=== PATIENT | female | born 1980 | race Caucasian/White ===

== ENCOUNTER 2016-12-20 00:40 | Emergency (ER) | payer MEDICAID ==
[~2016-12-20] VITALS: Ht 185.4 cm; Wt 129.3 kg
[2016-12-20 01:56] LABS: Basophils # (auto) 0 uL; Basophils % (auto) 0.5 % (0.0-2.0); CONDITION Y; Eosinophils # (auto) 0.3 uL; Eosinophils % (auto) 2.6 % (0.0-7.0); Hematocrit 40.1 % (36.0-46.0); Hemoglobin 13.6 g/dL (12.2-16.2); Lymphocytes # (auto) 1.7 uL; Lymphocytes % (auto) 16.5 % (10.0-50.0); Mean Corpuscular Hemoglobin 31.3 pg (28.0-32.0); Mean Corpuscular Hgb Conc. 33.9 g/dL (32.0-36.0); Mean Corpuscular Volume 92.3 fL (80.0-100.0); Mean Platelet Volume 7.1 fL (7.4-10.4); Monocytes # (auto) 0.7 uL; Monocytes % (auto) 6.6 % (0.0-12.0); Neutrophils # (auto) 7.6 uL; Neutrophils % (auto) 73.8 % (37.0-80.0); Platelet Count (auto) 452 10^3/uL (140-450); Red Cell Distribution Width 13.6 % (11.6-16.0); White Blood Cell 10.3 10^3/uL (4.4-10.8)
[2016-12-20 02:27] LABS: Albumin 3.3 g/dL (3.4-5.0); BUN/Creatinine Ratio 12.7; Calcium 8.9 mg/dL (8.5-10.1); Potassium 3.9 mmol/L (3.5-5.1)
[2016-12-20 02:30] LABS: Bilirubin, Total 0.4 mg/dL (0.2-1.0); Total Protein 7.6 g/dL (6.4-8.2)
[2016-12-20 03:48] LABS: Urine Bilirubin Negative (Negative); Urine Color Yellow (Yellow); Urine Glucose Normal (Normal); Urine Mucus FEW (None Seen); Urine Nitrite Negative (Negative); Urine RBC 3 /hpf (0 - 4); Urine Squamous Epithelial Cell FEW /hpf (<5); Urine Urobilinogen Normal (Negative)
[2016-12-20 04:09] LABS: Urine Blood 1+ /uL (Negative); Urine Ketone 1+ (Negative)
[2016-12-20 05:30] VITALS: BP 126/72
== END 2016-12-20 05:30 ==
LOC: ER 01:07
DX: O99.331 Smoking (tobacco) complicating pregnancy, first trimester (principal); O26.891 Other specified pregnancy related conditions, first trimester; F15.90 Other stimulant use, unspecified, uncomplicated; Z3A.10 10 weeks gestation of pregnancy
CPT/HCPCS: 36415; 76801; 80053; 80307; 81001; 84702; 85025

== ENCOUNTER 2020-07-04 19:34 | Emergency (ER) | payer MEDICAID, OTHER ==
[~2020-07-04] VITALS: Ht 188 cm; Wt 154.2 kg
[2020-07-04] MEDS ORDERED: PANTOPRAZOLE 40 MG/10 ML VIAL INJ IV ONE (19:45)
[2020-07-04 20:10] LABS: Basophils # (auto) 0.1 10 ^3/uL (0-0.2); Basophils % (auto) 0.8 % (0.0-2.0); Eosinophils # (auto) 0.2 10 ^3/uL (0-0.8); Eosinophils % (auto) 2.2 % (0.0-7.0); Hematocrit 42.4 % (36.0-46.0); Hemoglobin 14.6 g/dL (12.2-16.2); Lymphocytes # (auto) 2.5 10 ^3/uL (0.4-5.4); Lymphocytes % (auto) 35.9 % (10.0-50.0); Mean Corpuscular Hemoglobin 32.3 pg (28.0-32.0); Mean Corpuscular Hgb Conc. 34.5 g/dL (32.0-36.0); Mean Corpuscular Volume 93.6 fL (80.0-100.0); Monocytes # (auto) 0.6 10 ^3/uL (0-1.3); Monocytes % (auto) 9.2 % (0.0-12.0); Neutrophils # (auto) 3.6 10 ^3/uL (1.6-8.6); Neutrophils % (auto) 51.9 % (37.0-80.0); Nucleated Red Blood Cells % 0.2 %; Platelet Count (auto) 322 10^3/uL (140-450); Red Blood Cells 4.53 10^6/uL (4.0-5.20); Red Cell Distribution Width 13.7 % (11.8-14.3)
[2020-07-04 20:26] LABS: Albumin 2.9 g/dL (3.4-5.0); Anion Gap 6 (5-15); Blood Urea Nitrogen 15 mg/dL (7-18); Calcium 8.3 mg/dL (8.5-10.1); Carbon Dioxide 27 mmol/L (21-32); Chloride 107 mmol/L (98-107); Glucose 97 mg/dL (74-106); Potassium 3.9 mmol/L (3.5-5.1); Sodium 140 mmol/L (136-145)
[2020-07-04 20:31] LABS: Alanine Aminotransferase 76 U/L (13-56); Alkaline Phosphatase 153 U/L (45-117); Aspartate Aminotransferase 64 U/L (15-37); Bilirubin, Total 0.4 mg/dL (0.2-1.0); GFR African American 79 mL/min; GFR Non-African American 66 mL/min; Total Protein 6.3 g/dL (6.4-8.2)
[2020-07-04 22:15] VITALS: BP 140/97
== END 2020-07-04 22:25 | disposition home or self-care (01) ==
LOC: ER 19:34
DX: R07.89 Other chest pain (principal); F15.90 Other stimulant use, unspecified, uncomplicated; K21.9 Gastro-esophageal reflux disease without esophagitis
CPT/HCPCS: 36415; 71046; 80053; 83880; 84484; 85025

== ENCOUNTER 2022-03-13 19:21 | Inpatient (IN) | payer MEDICAID ==
[~2022-03-13] VITALS: Ht 188 cm; Wt 175.0 kg
[2022-03-13 21:40] LABS: Basophils # (auto) 0.1 10 ^3/uL (0-0.2); Basophils % (auto) 0.9 % (0.0-2.0); Eosinophils # (auto) 0.1 10 ^3/uL (0-0.8); Eosinophils % (auto) 1.9 % (0.0-7.0); Hemoglobin 14.6 g/dL (12.2-16.2); Lymphocytes # (auto) 1.1 10 ^3/uL (0.4-5.4); Lymphocytes % (auto) 17.6 % (10.0-50.0); Mean Corpuscular Hemoglobin 31.8 pg (28.0-32.0); Mean Corpuscular Hgb Conc. 33.2 g/dL (32.0-36.0); Mean Corpuscular Volume 95.9 fL (80.0-100.0); Monocytes # (auto) 0.4 10 ^3/uL (0-1.3); Monocytes % (auto) 6.7 % (0.0-12.0); Neutrophils # (auto) 4.7 10 ^3/uL (1.6-8.6); Neutrophils % (auto) 72.9 % (37.0-80.0); Red Blood Cells 4.59 10^6/uL (4.0-5.20); Red Cell Distribution Width 17.8 % (11.8-14.3); White Blood Cell 6.5 10^3/uL (4.4-10.8)
[2022-03-13 22:01] LABS: Albumin 2.9 g/dL (3.4-5.0); Calcium 9.3 mg/dL (8.5-10.1); Magnesium 2.7 mg/dL (1.6-2.6); Potassium 3.6 mmol/L (3.5-5.1)
[2022-03-13 22:07] LABS: Lactic Acid w/Reflex 2.4 mmol/L (0.4-2.0)
[2022-03-13 22:10] LABS: BUN/Creatinine Ratio 12.6; Bilirubin, Total 3.1 mg/dL (0.2-1.0); CRP High Sensitivity 12.4 mg/dL (< 0.3); Total Protein 6.9 g/dL (6.4-8.2)
[2022-03-13] MEDS ORDERED: FUROSEMIDE 100 MG/10ML VIAL IV ONE (22:30)
[2022-03-13] MEDS ORDERED: CLINDAMYCIN 900MG IV 50 ML IV ONE (23:15)
[2022-03-14] MEDS ORDERED: GABAPENTIN 100 MG CAP PO ONE (02:00)
[2022-03-14] MEDS ORDERED: NITROGLYCERIN 0.4 MG SL TAB SL PRN (02:15)
[2022-03-14] MEDS ORDERED: TEMAZEPAM 15 MG CAP PO PRN (02:15)
[2022-03-14] MEDS ORDERED: HYDROcodone-ACET 5/325MG TAB PO PRN (02:15)
[2022-03-14] MEDS ORDERED: MORPHINE SULFATE INJ 2 MG/ml SYRG IV PRN (02:15)
[2022-03-14] MEDS ORDERED: ACETAMINOPHEN 325 MG TAB PO PRN (02:15)
[2022-03-14] MEDS ORDERED: ONDANSETRON HCL 4 MG/2 ML VIAL IV PRN (02:15)
[2022-03-14 02:58] LABS: Cholesterol 102 mg/dL (< 200)
[2022-03-14 03:00] LABS: HDL Cholesterol 22 mg/dL (40-59); LDL Cholesterol 72 mg/dL (< 100); Triglycerides 116 mg/dL (< 150)
[2022-03-14 04:08] LABS: Alcohol, Urine < 3.0 mg/dL (0-10); Amphetamine Screen, Urine POSITIVE (NEGATIVE); Barbiturate Scree,Urine NEGATIVE (NEGATIVE); Benzodiazephine Screen, Urine NEGATIVE (NEGATIVE); Cannabinoid Screen, Urine NEGATIVE (NEGATIVE); Cocaine Screen, Urine NEGATIVE (NEGATIVE); Opiate Scree,Urine NEGATIVE (NEGATIVE); Phencyclidine Screen, Urine NEGATIVE (NEGATIVE)
[2022-03-14 04:16] LABS: Urine Bacteria NONE SEEN /hpf (None Seen); Urine Blood Negative /uL (Negative); Urine Hyaline Cast FEW /lpf (0 - 2); Urine Specific Gravity 1.012 (1.001-1.035); Urine WBC 1 /hpf (0 - 5)
[2022-03-14] MEDS ORDERED: CLINDAMYCIN 600MG IV 50 ML IV SCH (06:00)
[2022-03-14] MEDS ORDERED: ENOXAPARIN SOD 100 MG/1 ML SYRINGE SC ONE (06:00)
[2022-03-14] MEDS: GABAPENTIN 100 MG CAP PO SCH ×3 (06:19→21:43)
[2022-03-14] MEDS: FUROSEMIDE 40 MG/4 ML VIAL IV SCH ×2 (06:19→18:05)
[2022-03-14] MEDS: CLINDAMYCIN 600MG IV 50 ML IV SCH ×2 (09:46→18:00)
[2022-03-14] MEDS ORDERED: PANTOPRAZOLE 40 MG TAB PO SCH (10:00)
[2022-03-14] MEDS ORDERED: ASPirin 81 mg TAB PO SCH (10:00)
[2022-03-14] MEDS ORDERED: METOPROLOL TARTRATE 25 MG TAB PO SCH (10:00)
[2022-03-14 18:00] VITALS: BP 116/76
[2022-03-14] MEDS ORDERED: BUME2TAB5 PO (19:02)
[2022-03-14] MEDS ORDERED: SPIR50TA5 PO (19:02)
[2022-03-14] MEDS ORDERED: PRED10TA PO (19:02)
[2022-03-14] MEDS ORDERED: HYDR1TAB97 (19:02)
[2022-03-14] MEDS ORDERED: DIPH-599 PO (19:02)
[2022-03-14] MEDS ORDERED: TORS100T12 PO (19:02)
[2022-03-14] MEDS ORDERED: ASPI1TAB37 PO (19:02)
[2022-03-14] MEDS ORDERED: TRIA0.5C TOP (19:02)
[2022-03-14] MEDS ORDERED: GAB100C PO (19:02)
[2022-03-14] MEDS ORDERED: METO25TA93 PO (19:02)
[2022-03-14] MEDS ORDERED: POTA-167 (19:02)
[2022-03-14] MEDS ORDERED: GABA300C10 PO (19:02)
[2022-03-14 21:30] VITALS: BP 100/64
[2022-03-14] MEDS ORDERED: ATORVASTATIN 20 MG TAB PO SCH (22:00)
[2022-03-14] MEDS ORDERED: CARVEDILOL 3.125 MG TAB PO SCH (22:00)
[2022-03-15] MEDS ORDERED: cefTRIAXone 1GM/50ML D5W 50 ML IV SCH (09:00)
[2022-03-15] MEDS ORDERED: ENOXAPARIN SOD 40 MG/0.4 ML SYRINGE SC SCH (10:00)
== END 2022-03-15 00:10 | disposition home or self-care (01) | DRG 194 ==
LOC: ER 19:21 → TELE 03-14 02:22 → TELE-EAST 03-14 17:40
PROVIDERS: ADMIT Nurse Practitioner; ATTEND Nurse Practitioner Acute Care
DX: I11.0 Hypertensive heart disease with heart failure (principal); I27.20 Pulmonary hypertension, unspecified; L03.115 Cellulitis of right lower limb; N17.9 Acute kidney failure, unspecified; E88.09 Other disorders of plasma-protein metabolism, not elsewhere classified; I42.7 Cardiomyopathy due to drug and external agent; L03.116 Cellulitis of left lower limb; E78.5 Hyperlipidemia, unspecified; F15.10 Other stimulant abuse, uncomplicated; I50.43 Acute on chronic combined systolic (congestive) and diastolic (congestive) heart failure; R09.02 Hypoxemia; E66.01 Morbid (severe) obesity due to excess calories; Z68.42 Body mass index [BMI] 45.0-49.9, adult; Z82.49 Family history of ischemic heart disease and other diseases of the circulatory system; Z83.3 Family history of diabetes mellitus
CPT/HCPCS: 36415; 36600; 71045; 78582; 80053; 80061; 80307; 81001; 82805; 83036; 83605; 83735; 83880; 84443; 84484; 84702; 85025; 85379; 86141; 87040; 87426; 93306; 93970; 96365; 96372; 96375; G0378; J3490

== ENCOUNTER 2022-03-20 23:39 | Inpatient (IN) | payer MEDICAID ==
[~2022-03-20] VITALS: Ht 182.9 cm; Wt 184.7 kg
[~2022-03-20 23:39] MED LIST: ASPI1TAB37 PO; BUME2TAB5 PO; DIPH-599 PO; GAB100C PO; GABA300C10 PO; HYDR1TAB97; METO25TA93 PO; POTA-167; PRED10TA PO; SPIR50TA5 PO; TORS100T12 PO; TRIA0.5C TOP
[2022-03-21 03:20] LABS: Basophils # (auto) 0.1 10 ^3/uL (0-0.2); Basophils % (auto) 1.2 % (0.0-2.0); Eosinophils # (auto) 0.2 10 ^3/uL (0-0.8); Eosinophils % (auto) 2.9 % (0.0-7.0); Hematocrit 39.8 % (36.0-46.0); Hemoglobin 13.2 g/dL (12.2-16.2); Lymphocytes # (auto) 1.3 10 ^3/uL (0.4-5.4); Lymphocytes % (auto) 21.6 % (10.0-50.0); Mean Corpuscular Hgb Conc. 33.3 g/dL (32.0-36.0); Monocytes # (auto) 0.5 10 ^3/uL (0-1.3); Monocytes % (auto) 7.4 % (0.0-12.0); Neutrophils # (auto) 4.1 10 ^3/uL (1.6-8.6); Neutrophils % (auto) 66.9 % (37.0-80.0); Nucleated Red Blood Cells % 0.1 %; Red Blood Cells 4.14 10^6/uL (4.0-5.20); Red Cell Distribution Width 18.2 % (11.8-14.3); White Blood Cell 6.1 10^3/uL (4.4-10.8)
[2022-03-21 03:51] LABS: Albumin 2.4 g/dL (3.4-5.0); Calcium 8.3 mg/dL (8.5-10.1); Magnesium 2.6 mg/dL (1.6-2.6); Potassium 3.3 mmol/L (3.5-5.1)
[2022-03-21 03:54] LABS: Bilirubin, Total 1.3 mg/dL (0.2-1.0); Total Protein 5.8 g/dL (6.4-8.2)
[2022-03-21] MEDS ORDERED: FUROSEMIDE 40 MG/4 ML VIAL IV ONE (05:30)
[2022-03-21] MEDS ORDERED: NITROGLYCERIN 0.4 MG SL TAB SL PRN (05:30)
[2022-03-21] MEDS ORDERED: IOHEXOL 350 MG/ML 100ML IJ ONE (05:31)
[2022-03-21] MEDS: ACETAMINOPHEN 325 MG TAB PO PRN (06:18)
[2022-03-21 08:01] VITALS: BP 101/66
[2022-03-21 09:57] LABS: INR 1.22 (0.9-1.15); Partial Thromboplastin Time 28.5 sec (24.6-33.4)
[2022-03-21] MEDS: ASPirin 81 mg TAB PO SCH (10:09)
[2022-03-21] MEDS: PANTOPRAZOLE 40 MG TAB PO SCH (10:09)
[2022-03-21] MEDS: METOPROLOL SUCCINATE XL 50 MG TAB PO SCH (10:11)
[2022-03-21] MEDS ORDERED: POTASSIUM EFFERVESENT TAB 25 MEQ PO ONE (11:45)
[2022-03-21] MEDS ORDERED: ENOXAPARIN SOD 30 MG/0.3 ML SYRINGE SC ONE (11:45)
[2022-03-21] MEDS: CLINDAMYCIN 900MG IV 50 ML IV SCH ×2 (14:24→22:37)
[2022-03-21] MEDS: MORPHINE SULFATE INJ 2 MG/ml SYRG IV PRN (15:19)
[2022-03-21] MEDS: ALBUTEROL SULF 2.5 MG/0.5ML(0.5%) NEB SOLN NEB PRN ×2 (15:28→19:06)
[2022-03-21] MEDS: FUROSEMIDE 20 MG/2 ML VIAL IV SCH (17:58)
[2022-03-21] MEDS ORDERED: FUROSEMIDE 20 MG/2 ML VIAL IV SCH (18:00)
[2022-03-21] MEDS: ENOXAPARIN SOD 40 MG/0.4 ML SYRINGE SC SCH (22:00)
[2022-03-21] MEDS ORDERED: SACUBITRIL-VALSARTAN 24mg/26mg TAB PO SCH (22:00)
[2022-03-21] MEDS: POTASSIUM CHL 20 Meq TABLET PO SCH (22:29)
[2022-03-21] MEDS: ATORVASTATIN 20 MG TAB PO SCH (22:30)
[2022-03-21] MEDS ORDERED: MULT-1018 PO (23:13)
[2022-03-21] MEDS ORDERED: CHOL20007 PO (23:14)
[2022-03-21] MEDS ORDERED: SACC1CAP3 PO (23:15)
[2022-03-21 23:16] VITALS: BP 103/67
[2022-03-21] MEDS: TEMAZEPAM 15 MG CAP PO PRN (23:53)
[2022-03-22] VITALS (13 sets, daily range): BP systolic 89–118; BP diastolic 43–80
[2022-03-22] MEDS: ALBUTEROL SULF 2.5 MG/0.5ML(0.5%) NEB SOLN NEB SCH ×4 (00:49→18:37)
[2022-03-22] MEDS: FUROSEMIDE 20 MG/2 ML VIAL IV SCH ×3 (02:32→18:13)
[2022-03-22] MEDS: ACETAMINOPHEN 325 MG TAB PO PRN (03:39)
[2022-03-22] MEDS: CLINDAMYCIN 900MG IV 50 ML IV SCH ×3 (05:57→22:20)
[2022-03-22] MEDS: HYDROcodone-ACET 5/325MG TAB PO PRN ×3 (05:57→22:16)
[2022-03-22 06:07] LABS: Basophils # (auto) 0.1 10 ^3/uL (0-0.2); Eosinophils # (auto) 0.1 10 ^3/uL (0-0.8); Eosinophils % (auto) 2.2 % (0.0-7.0); Hematocrit 37.8 % (36.0-46.0); Hemoglobin 12.7 g/dL (12.2-16.2); Lymphocytes # (auto) 1.2 10 ^3/uL (0.4-5.4); Lymphocytes % (auto) 22.5 % (10.0-50.0); Mean Corpuscular Hemoglobin 32.6 pg (28.0-32.0); Mean Corpuscular Hgb Conc. 33.5 g/dL (32.0-36.0); Mean Corpuscular Volume 97.4 fL (80.0-100.0); Monocytes # (auto) 0.3 10 ^3/uL (0-1.3); Monocytes % (auto) 6.1 % (0.0-12.0); Neutrophils # (auto) 3.6 10 ^3/uL (1.6-8.6); Neutrophils % (auto) 68.2 % (37.0-80.0); Nucleated Red Blood Cells % 0.1 %; Red Blood Cells 3.88 10^6/uL (4.0-5.20); Red Cell Distribution Width 18.4 % (11.8-14.3); White Blood Cell 5.3 10^3/uL (4.4-10.8)
[2022-03-22 06:33] LABS: Potassium 3.9 mmol/L (3.5-5.1)
[2022-03-22 06:46] LABS: Albumin 2.4 g/dL (3.4-5.0); BUN/Creatinine Ratio 17.4; Bilirubin, Total 1.3 mg/dL (0.2-1.0); Calcium 8.8 mg/dL (8.5-10.1); Total Protein 5.9 g/dL (6.4-8.2)
[2022-03-22] MEDS ORDERED: EMPAGLIFLOZIN 10 MG TAB PO SCH (07:00)
[2022-03-22] MEDS: POTASSIUM CHL 20 Meq TABLET PO SCH ×2 (10:04→22:18)
[2022-03-22] MEDS: METOPROLOL SUCCINATE XL 50 MG TAB PO SCH (10:04)
[2022-03-22] MEDS: PANTOPRAZOLE 40 MG TAB PO SCH (10:04)
[2022-03-22] MEDS: ASPirin 81 mg TAB PO SCH (10:04)
[2022-03-22] MEDS: ENOXAPARIN SOD 40 MG/0.4 ML SYRINGE SC SCH ×2 (10:05→22:16)
[2022-03-22 12:40] LABS: Free T4 (Free Thyroxine) 1.02 ng/dL (0.89-1.76); T3 Total 0.84 ng/mL (0.60-1.81)
[2022-03-22] MEDS: ATORVASTATIN 20 MG TAB PO SCH (22:17)
[2022-03-23] MEDS: TEMAZEPAM 15 MG CAP PO PRN (00:59)
[2022-03-23] MEDS: ALBUTEROL SULF 2.5 MG/0.5ML(0.5%) NEB SOLN NEB SCH ×4 (01:28→18:27)
[2022-03-23] MEDS: FUROSEMIDE 20 MG/2 ML VIAL IV SCH ×3 (02:55→18:51)
[2022-03-23 05:00] VITALS: BP 109/75
[2022-03-23] MEDS: CLINDAMYCIN 900MG IV 50 ML IV SCH ×3 (05:29→22:37)
[2022-03-23 06:04] LABS: Calcium 8.6 mg/dL (8.5-10.1); Potassium 4.7 mmol/L (3.5-5.1)
[2022-03-23 06:58] LABS: Urine Bacteria NONE SEEN /hpf (None Seen); Urine Blood 1+ /uL (Negative); Urine Specific Gravity 1.019 (1.001-1.035); Urine WBC 14 /hpf (0 - 5)
[2022-03-23 07:20] LABS: Alcohol, Urine < 3.0 mg/dL (0-10); Amphetamine Screen, Urine NEGATIVE (NEGATIVE); Barbiturate Scree,Urine NEGATIVE (NEGATIVE); Benzodiazephine Screen, Urine NEGATIVE (NEGATIVE); Cannabinoid Screen, Urine NEGATIVE (NEGATIVE); Cocaine Screen, Urine NEGATIVE (NEGATIVE); Opiate Scree,Urine POSITIVE (NEGATIVE); Phencyclidine Screen, Urine NEGATIVE (NEGATIVE)
[2022-03-23 08:00] VITALS: BP 103/42
[2022-03-23] MEDS: MORPHINE SULFATE INJ 2 MG/ml SYRG IV PRN ×2 (08:18→18:53)
[2022-03-23 09:14] VITALS: BP 103/42
[2022-03-23] MEDS: LIDOCAINE VISCOUS 2% 15ML UD MT PRN ×4 (09:54→22:36)
[2022-03-23] MEDS: ASPirin 81 mg TAB PO SCH (09:54)
[2022-03-23] MEDS: POTASSIUM CHL 20 Meq TABLET PO SCH (09:55)
[2022-03-23] MEDS: PANTOPRAZOLE 40 MG TAB PO SCH (09:55)
[2022-03-23] MEDS: ENOXAPARIN SOD 40 MG/0.4 ML SYRINGE SC SCH ×2 (09:56→22:37)
[2022-03-23] MEDS: METOPROLOL SUCCINATE XL 50 MG TAB PO SCH (09:57)
[2022-03-23] MEDS ORDERED: ENOXAPARIN SOD 40 MG/0.4 ML SYRINGE SC SCH (10:00)
[2022-03-23 13:00] VITALS: BP 99/70
[2022-03-23 17:41] VITALS: BP 112/70
[2022-03-23] MEDS ORDERED: LACTULOSE 20Gm/30ML SOLN PO PRN (18:00)
[2022-03-23 22:00] VITALS: BP 113/65
[2022-03-23] MEDS: ATORVASTATIN 20 MG TAB PO SCH (22:35)
[2022-03-23] MEDS: SENNA 8.6 MG TAB PO SCH (22:36)
[2022-03-24] MEDS: ALBUTEROL SULF 2.5 MG/0.5ML(0.5%) NEB SOLN NEB SCH ×4 (00:31→18:02)
[2022-03-24] MEDS: FUROSEMIDE 20 MG/2 ML VIAL IV SCH ×2 (02:14→09:29)
[2022-03-24] MEDS: ACETAMINOPHEN 325 MG TAB PO PRN ×2 (02:20→20:41)
[2022-03-24 05:00] VITALS: BP 102/60
[2022-03-24 05:04] LABS: Basophils # (auto) 0.1 10 ^3/uL (0-0.2); Basophils % (auto) 1.3 % (0.0-2.0); Eosinophils # (auto) 0.1 10 ^3/uL (0-0.8); Eosinophils % (auto) 1.9 % (0.0-7.0); Hematocrit 37.4 % (36.0-46.0); Hemoglobin 12.6 g/dL (12.2-16.2); Lymphocytes # (auto) 1.1 10 ^3/uL (0.4-5.4); Lymphocytes % (auto) 21.7 % (10.0-50.0); Mean Corpuscular Hemoglobin 32.6 pg (28.0-32.0); Mean Corpuscular Hgb Conc. 33.8 g/dL (32.0-36.0); Mean Corpuscular Volume 96.5 fL (80.0-100.0); Monocytes # (auto) 0.3 10 ^3/uL (0-1.3); Monocytes % (auto) 6.2 % (0.0-12.0); Neutrophils # (auto) 3.6 10 ^3/uL (1.6-8.6); Neutrophils % (auto) 68.9 % (37.0-80.0); Nucleated Red Blood Cells % 0.2 %; Red Blood Cells 3.87 10^6/uL (4.0-5.20); Red Cell Distribution Width 18.5 % (11.8-14.3); White Blood Cell 5.3 10^3/uL (4.4-10.8)
[2022-03-24 05:20] LABS: BUN/Creatinine Ratio 17.5; Calcium 8.9 mg/dL (8.5-10.1); Potassium 4.8 mmol/L (3.5-5.1)
[2022-03-24] MEDS: CLINDAMYCIN 900MG IV 50 ML IV SCH ×3 (05:32→22:20)
[2022-03-24 08:00] VITALS: BP 99/55
[2022-03-24 09:00] VITALS: BP 99/55
[2022-03-24] MEDS: ENOXAPARIN SOD 40 MG/0.4 ML SYRINGE SC SCH ×2 (09:27→22:20)
[2022-03-24] MEDS: ASPirin 81 mg TAB PO SCH (09:28)
[2022-03-24] MEDS: SENNA 8.6 MG TAB PO SCH ×2 (09:28→22:18)
[2022-03-24] MEDS: PANTOPRAZOLE 40 MG TAB PO SCH (09:28)
[2022-03-24] MEDS: LIDOCAINE VISCOUS 2% 15ML UD MT PRN (09:30)
[2022-03-24] MEDS: METOPROLOL SUCCINATE XL 50 MG TAB PO SCH (09:30)
[2022-03-24] MEDS: HYDROcodone-ACET 5/325MG TAB PO PRN (09:40)
[2022-03-24] MEDS ORDERED: metOLazone 5 MG TAB PO SCH (10:00)
[2022-03-24 13:00] VITALS: BP 110/58
[2022-03-24 16:50] VITALS: BP 109/63
[2022-03-24] MEDS: ONDANSETRON HCL 4 MG/2 ML VIAL IV PRN (16:55)
[2022-03-24] MEDS: MORPHINE SULFATE INJ 2 MG/ml SYRG IV PRN (16:56)
[2022-03-24] MEDS: CARVEDILOL 3.125 MG TAB PO SCH (17:24)
[2022-03-24] MEDS: FUROSEMIDE 20 MG TAB PO SCH (17:25)
[2022-03-24] MEDS: metOLazone 5 MG TAB PO SCH (17:26)
[2022-03-24] MEDS: TEMAZEPAM 15 MG CAP PO PRN (22:18)
[2022-03-24] MEDS: ATORVASTATIN 20 MG TAB PO SCH (22:19)
[2022-03-25] MEDS: ALBUTEROL SULF 2.5 MG/0.5ML(0.5%) NEB SOLN NEB SCH ×4 (00:09→18:51)
[2022-03-25] MEDS: ONDANSETRON HCL 4 MG/2 ML VIAL IV PRN ×2 (01:18→05:23)
[2022-03-25] MEDS: MORPHINE SULFATE INJ 2 MG/ml SYRG IV PRN ×2 (01:23→09:05)
[2022-03-25 05:00] VITALS: BP 120/66
[2022-03-25 05:21] LABS: Basophils # (auto) 0.1 10 ^3/uL (0-0.2); Eosinophils # (auto) 0.2 10 ^3/uL (0-0.8); Eosinophils % (auto) 2.9 % (0.0-7.0); Hematocrit 35.5 % (36.0-46.0); Lymphocytes % (auto) 19.5 % (10.0-50.0); Mean Corpuscular Hemoglobin 32.8 pg (28.0-32.0); Mean Corpuscular Hgb Conc. 33.9 g/dL (32.0-36.0); Mean Corpuscular Volume 96.6 fL (80.0-100.0); Monocytes # (auto) 0.5 10 ^3/uL (0-1.3); Monocytes % (auto) 8.5 % (0.0-12.0); Neutrophils # (auto) 3.6 10 ^3/uL (1.6-8.6); Neutrophils % (auto) 68.1 % (37.0-80.0); Nucleated Red Blood Cells % 0.1 %; Red Blood Cells 3.68 10^6/uL (4.0-5.20); Red Cell Distribution Width 18.2 % (11.8-14.3); White Blood Cell 5.4 10^3/uL (4.4-10.8)
[2022-03-25] MEDS: FUROSEMIDE 20 MG TAB PO SCH ×2 (05:23→18:02)
[2022-03-25] MEDS: metOLazone 5 MG TAB PO SCH ×2 (05:25→18:02)
[2022-03-25 05:34] LABS: INR 1.27 (0.9-1.15); Partial Thromboplastin Time 31.3 sec (24.6-33.4)
[2022-03-25 05:40] LABS: BUN/Creatinine Ratio 17.7; Potassium 3.9 mmol/L (3.5-5.1)
[2022-03-25] MEDS: CLINDAMYCIN 900MG IV 50 ML IV SCH (05:57)
[2022-03-25] MEDS: LIDOCAINE VISCOUS 2% 15ML UD MT PRN (07:20)
[2022-03-25 08:00] VITALS: BP 107/53
[2022-03-25] MEDS: ENOXAPARIN SOD 40 MG/0.4 ML SYRINGE SC SCH ×2 (09:07→22:25)
[2022-03-25] MEDS: SENNA 8.6 MG TAB PO SCH ×2 (09:07→22:24)
[2022-03-25] MEDS: PANTOPRAZOLE 40 MG TAB PO SCH (09:07)
[2022-03-25] MEDS: ASPirin 81 mg TAB PO SCH (09:07)
[2022-03-25 13:00] VITALS: BP 106/71
[2022-03-25] MEDS: HYDROcodone-ACET 5/325MG TAB PO PRN (14:06)
[2022-03-25] MEDS ORDERED: IOHEXOL 300 MG/ML 100ML BOTTLE IJ ONE ×2 (14:18→17:39)
[2022-03-25] MEDS: ACETAMINOPHEN 325 MG TAB PO PRN (16:41)
[2022-03-25 17:00] VITALS: BP 102/67
[2022-03-25] MEDS: CARVEDILOL 3.125 MG TAB PO SCH (18:01)
[2022-03-25 22:00] VITALS: BP 89/53
[2022-03-25] MEDS: ATORVASTATIN 20 MG TAB PO SCH (22:24)
[2022-03-25] MEDS: DOXYCYCLINE 100 MG TAB/CAP PO SCH (22:25)
[2022-03-25] MEDS: TEMAZEPAM 15 MG CAP PO PRN (22:41)
[2022-03-26] MEDS: ALBUTEROL SULF 2.5 MG/0.5ML(0.5%) NEB SOLN NEB SCH ×4 (00:07→19:33)
[2022-03-26 05:00] VITALS: BP 118/70
[2022-03-26] MEDS: MORPHINE SULFATE INJ 2 MG/ml SYRG IV PRN (05:15)
[2022-03-26] MEDS: metOLazone 5 MG TAB PO SCH ×2 (05:51→18:35)
[2022-03-26] MEDS: FUROSEMIDE 20 MG TAB PO SCH ×2 (05:51→18:32)
[2022-03-26 08:00] VITALS: BP 108/62
[2022-03-26] MEDS: ASPirin 81 mg TAB PO SCH (08:47)
[2022-03-26] MEDS: SENNA 8.6 MG TAB PO SCH ×2 (08:47→21:00)
[2022-03-26] MEDS: PANTOPRAZOLE 40 MG TAB PO SCH (08:47)
[2022-03-26] MEDS: DOXYCYCLINE 100 MG TAB/CAP PO SCH ×2 (08:48→21:00)
[2022-03-26] MEDS: ENOXAPARIN SOD 40 MG/0.4 ML SYRINGE SC SCH (08:48)
[2022-03-26] MEDS: HYDROcodone-ACET 5/325MG TAB PO PRN ×2 (08:49→14:52)
[2022-03-26] MEDS ORDERED: DOX100T PO (11:39)
[2022-03-26] MEDS ORDERED: METO2.5T PO (11:39)
[2022-03-26] MEDS ORDERED: SPIR50TA5 PO (11:39)
[2022-03-26] MEDS ORDERED: FURO1TAB31 PO (11:39)
[2022-03-26] MEDS ORDERED: MULT-1018 PO (11:39)
[2022-03-26] MEDS ORDERED: SENN-83 PO (11:39)
[2022-03-26] MEDS ORDERED: METO25TA93 PO (11:39)
[2022-03-26 12:00] VITALS: BP 107/65
[2022-03-26 16:00] VITALS: BP 108/51
[2022-03-26] MEDS: CARVEDILOL 3.125 MG TAB PO SCH (18:32)
[2022-03-26 19:53] VITALS: BP 135/55
[2022-03-26] MEDS: ATORVASTATIN 20 MG TAB PO SCH (21:00)
== END 2022-03-26 21:00 | disposition home health service (06) | DRG 194 ==
LOC: EDBD 23:39 → ER 23:39 → TELE 03-21 05:20 → TELE-CENTR 03-21 22:44
PROVIDERS: ADMIT Nurse Practitioner; ATTEND Hospitalist
PROC: 0W993ZZ Drainage of Right Pleural Cavity, Percutaneous Approach (ICD-10-PCS; principal; 2022-03-22)
DX: I13.0 Hypertensive heart and chronic kidney disease with heart failure and stage 1 through stage 4 chronic kidney disease, or unspecified chronic kidney disease (principal); J96.01 Acute respiratory failure with hypoxia; L03.115 Cellulitis of right lower limb; E43 Unspecified severe protein-calorie malnutrition; I27.20 Pulmonary hypertension, unspecified; L03.116 Cellulitis of left lower limb; J91.8 Pleural effusion in other conditions classified elsewhere; Z20.822 Contact with and (suspected) exposure to COVID-19; Z68.43 Body mass index [BMI] 50.0-59.9, adult; I50.43 Acute on chronic combined systolic (congestive) and diastolic (congestive) heart failure; I42.7 Cardiomyopathy due to drug and external agent; E66.01 Morbid (severe) obesity due to excess calories; E87.6 Hypokalemia; F15.10 Other stimulant abuse, uncomplicated; N18.9 Chronic kidney disease, unspecified; G47.33 Obstructive sleep apnea (adult) (pediatric); Z80.0 Family history of malignant neoplasm of digestive organs; Z82.49 Family history of ischemic heart disease and other diseases of the circulatory system; Z91.199 Patient's noncompliance with other medical treatment and regimen due to unspecified reason; Z83.3 Family history of diabetes mellitus; J98.11 Atelectasis
CPT/HCPCS: 36415; 36600; 71045; 71275; 74177; 76604; 76942; 80048; 80053; 80307; 81001; 82805; 83690; 83735; 83880; 83986; 84439; 84443; 84480; 84484; 85025; 85379; 85610; 85730; 87070; 87205; 87426; 89051; 93005; 93970; 94640; 96372; 96374; 96375; 96376; 97163; G0378; J2405; J3490

== ENCOUNTER 2022-03-27 10:13 | Inpatient (IN) | payer MEDICAID ==
[~2022-03-27] VITALS: Ht 188 cm; Wt 180.9 kg
[~2022-03-27 10:13] MED LIST changes: -BUME2TAB5 PO; +CHOL20007 PO; +DOX100T PO; +FURO1TAB31 PO; -GAB100C PO; +METO2.5T PO; +MULT-1018 PO; -POTA-167; -PRED10TA PO; +SACC1CAP3 PO; +SENN-83 PO; -TORS100T12 PO
[2022-03-27] MEDS ORDERED: SODIUM CHLORIDE 0.9% 1,000 ML IV ONE ×2 (11:00→12:15)
[2022-03-27] MEDS ORDERED: SODIUM CHLORIDE 0.9% 500 ML IVB ONE (11:00)
[2022-03-27] MEDS ORDERED: METOCLOPRAMIDE HCL 5MG/ml INJ 2ml VIAL IV ONE (11:00)
[2022-03-27 11:32] LABS: Basophils # (auto) 0 10 ^3/uL (0-0.2); Basophils % (auto) 0.8 % (0.0-2.0); Eosinophils # (auto) 0.1 10 ^3/uL (0-0.8); Eosinophils % (auto) 1.1 % (0.0-7.0); Hematocrit 36.8 % (36.0-46.0); Hemoglobin 12.2 g/dL (12.2-16.2); Lymphocytes # (auto) 0.8 10 ^3/uL (0.4-5.4); Lymphocytes % (auto) 13.7 % (10.0-50.0); Mean Corpuscular Hemoglobin 31.9 pg (28.0-32.0); Mean Corpuscular Volume 96.7 fL (80.0-100.0); Monocytes # (auto) 0.4 10 ^3/uL (0-1.3); Monocytes % (auto) 6.8 % (0.0-12.0); Neutrophils # (auto) 4.5 10 ^3/uL (1.6-8.6); Neutrophils % (auto) 77.6 % (37.0-80.0); Nucleated Red Blood Cells % 0.3 %; Red Blood Cells 3.81 10^6/uL (4.0-5.20); Red Cell Distribution Width 17.5 % (11.8-14.3); White Blood Cell 5.7 10^3/uL (4.4-10.8)
[2022-03-27 11:55] LABS: Albumin 2.7 g/dL (3.4-5.0); Calcium 9.4 mg/dL (8.5-10.1); Magnesium 2.6 mg/dL (1.6-2.6)
[2022-03-27 11:59] LABS: BUN/Creatinine Ratio 17.5; Bilirubin, Total 1.6 mg/dL (0.2-1.0); Total Protein 5.9 g/dL (6.4-8.2)
[2022-03-27] MEDS ORDERED: ONDANSETRON HCL 4 MG/2 ML VIAL IV ONE (12:15)
[2022-03-27] MEDS ORDERED: HYDROmorphone HCL 2 MG/ML VL/or syr IV ONE (12:15)
[2022-03-27 12:18] LABS: Potassium 2.9 mmol/L (3.5-5.1)
[2022-03-27] MEDS ORDERED: POTASSIUM EFFERVESENT TAB 25 MEQ PO ONE ×3 (12:30→23:30)
[2022-03-27 22:42] LABS: Urine Bacteria NONE SEEN /hpf (None Seen); Urine Blood Negative /uL (Negative); Urine Hyaline Cast FEW /lpf (0 - 2); Urine Specific Gravity 1.018 (1.001-1.035); Urine WBC 1 /hpf (0 - 5)
[2022-03-27] MEDS: FUROSEMIDE 20 MG/2 ML VIAL IV ONE (23:01)
[2022-03-27] MEDS ORDERED: MORPHINE SULFATE INJ 2 MG/ml SYRG IV PRN (23:15)
[2022-03-27] MEDS ORDERED: NITROGLYCERIN 0.4 MG SL TAB SL PRN (23:15)
[2022-03-27 23:26] LABS: Magnesium 2.3 mg/dL (1.6-2.6); Potassium 3.1 mmol/L (3.5-5.1)
[2022-03-27 23:30] LABS: Albumin 2.7 g/dL (3.4-5.0); Bilirubin, Direct 1.1 mg/dL (0-0.2)
[2022-03-27] MEDS ORDERED: ALBUMIN 25% 100 ML IV ONE (23:30)
[2022-03-27 23:33] LABS: Bilirubin, Total 1.7 mg/dL (0.2-1.0); Total Protein 6.2 g/dL (6.4-8.2)
[2022-03-27 23:37] LABS: Alcohol, Urine < 3.0 mg/dL (0-10); Amphetamine Screen, Urine NEGATIVE (NEGATIVE); Barbiturate Scree,Urine NEGATIVE (NEGATIVE); Benzodiazephine Screen, Urine NEGATIVE (NEGATIVE); Cannabinoid Screen, Urine NEGATIVE (NEGATIVE); Cocaine Screen, Urine NEGATIVE (NEGATIVE); Opiate Scree,Urine NEGATIVE (NEGATIVE); Phencyclidine Screen, Urine NEGATIVE (NEGATIVE)
[2022-03-28] VITALS (27 sets, daily range): BP systolic 93–125; BP diastolic 55–80
[2022-03-28] MEDS: FUROSEMIDE 20 MG/2 ML VIAL IV ONE (00:52)
[2022-03-28] MEDS: ACETAMINOPHEN 325 MG TAB PO PRN (02:04)
[2022-03-28] MEDS ORDERED: dilTIAZem 25 MG/5 ML VIAL IV ONE ×2 (03:03→03:15)
[2022-03-28] MEDS: dilTIAZem 125mg/125ml BAG KIT 125 ML IV SCH ×3 (03:36→20:21)
[2022-03-28] MEDS ORDERED: FUROSEMIDE 20 MG/2 ML VIAL IV SCH ×3 (06:00→09:15)
[2022-03-28] MEDS ORDERED: SODIUM CHLOR 0.9% PF (SALINE LOCK) 10ML VIAL/SYR IV SCH (06:00)
[2022-03-28] MEDS: SODIUM CHLOR 0.9% PF (SALINE LOCK) 10ML VIAL/SYR IV SCH ×3 (06:09→21:09)
[2022-03-28] MEDS: METOCLOPRAMIDE HCL 5MG/ml INJ 2ml VIAL IV SCH ×3 (06:25→21:09)
[2022-03-28 06:48] LABS: Basophils # (auto) 0 10 ^3/uL (0-0.2); Basophils % (auto) 0.6 % (0.0-2.0); Eosinophils # (auto) 0 10 ^3/uL (0-0.8); Eosinophils % (auto) 0.8 % (0.0-7.0); Hematocrit 35.1 % (36.0-46.0); Hemoglobin 11.9 g/dL (12.2-16.2); Lymphocytes % (auto) 16.2 % (10.0-50.0); Mean Corpuscular Hemoglobin 32.2 pg (28.0-32.0); Mean Corpuscular Hgb Conc. 33.8 g/dL (32.0-36.0); Mean Corpuscular Volume 95.2 fL (80.0-100.0); Monocytes # (auto) 0.4 10 ^3/uL (0-1.3); Monocytes % (auto) 6.9 % (0.0-12.0); Neutrophils # (auto) 4.6 10 ^3/uL (1.6-8.6); Neutrophils % (auto) 75.5 % (37.0-80.0); Nucleated Red Blood Cells % 0.1 %; Red Blood Cells 3.69 10^6/uL (4.0-5.20); Red Cell Distribution Width 17.8 % (11.8-14.3); White Blood Cell 6.1 10^3/uL (4.4-10.8)
[2022-03-28 07:05] LABS: Albumin 2.8 g/dL (3.4-5.0); Calcium 9.2 mg/dL (8.5-10.1)
[2022-03-28 07:11] LABS: BUN/Creatinine Ratio 18.6; Bilirubin, Total 2.4 mg/dL (0.2-1.0); Total Protein 6.4 g/dL (6.4-8.2)
[2022-03-28 07:22] LABS: Potassium 2.8 mmol/L (3.5-5.1)
[2022-03-28] MEDS: POTASSIUM CHL 20MEQ/100ML 100 ML IV SCH ×3 (09:06→12:15)
[2022-03-28] MEDS ORDERED: ENOXAPARIN SOD 40 MG/0.4 ML SYRINGE SC SCH (10:00)
[2022-03-28] MEDS: ALBUMIN 25% 50 ML IV SCH ×2 (10:06→17:00)
[2022-03-28] MEDS: POTASSIUM CHL 20 Meq TABLET PO SCH ×2 (10:09→21:08)
[2022-03-28] MEDS ORDERED: MIDODRINE HCL 10 MG TAB PO SCH (12:00)
[2022-03-28] MEDS ORDERED: POTASSIUM EFFERVESENT TAB 25 MEQ PO ONE (15:15)
[2022-03-28] MEDS ORDERED: DIGOXIN (250MCG/ML) 2 ML AMPULE IV ONE (15:15)
[2022-03-28] MEDS ORDERED: FUROSEMIDE 20 MG/2 ML VIAL IV ONE (15:15)
[2022-03-28 15:53] LABS: Hepatitis A Ab IgM Negative; Hepatitis B Core IgM Negative; Hepatitis C Antibody Negative (Negative)
[2022-03-28] MEDS: ENOXAPARIN SOD 150 MG/1 ML SYRINGE SC SCH ×2 (16:58→21:07)
[2022-03-28] MEDS: FUROSEMIDE 20 MG/2 ML VIAL IV SCH (18:20)
[2022-03-28] MEDS: metOLazone 5 MG TAB PO SCH (21:07)
[2022-03-28] MEDS: TEMAZEPAM 15 MG CAP PO PRN (21:07)
[2022-03-28] MEDS: GABAPENTIN 100 MG CAP PO SCH (21:08)
[2022-03-28] MEDS: CARVEDILOL 3.125 MG TAB PO SCH (21:09)
[2022-03-29] VITALS (57 sets, daily range): BP systolic 97–126; BP diastolic 61–84
[2022-03-29] MEDS: ALBUMIN 25% 50 ML IV SCH (01:11)
[2022-03-29] MEDS: dilTIAZem 125mg/125ml BAG KIT 125 ML IV SCH (04:07)
[2022-03-29 05:43] LABS: Albumin 2.9 g/dL (3.4-5.0); Bilirubin, Direct 1.1 mg/dL (0-0.2); Calcium 9.5 mg/dL (8.5-10.1); Magnesium 2.8 mg/dL (1.6-2.6)
[2022-03-29 05:47] LABS: BUN/Creatinine Ratio 21.2; Bilirubin, Total 1.8 mg/dL (0.2-1.0); Total Protein 6.2 g/dL (6.4-8.2)
[2022-03-29] MEDS: METOCLOPRAMIDE HCL 5MG/ml INJ 2ml VIAL IV SCH ×3 (05:58→22:22)
[2022-03-29] MEDS: FUROSEMIDE 20 MG/2 ML VIAL IV SCH ×2 (05:59→14:31)
[2022-03-29] MEDS: SODIUM CHLOR 0.9% PF (SALINE LOCK) 10ML VIAL/SYR IV SCH ×3 (05:59→22:24)
[2022-03-29] MEDS: GABAPENTIN 100 MG CAP PO SCH ×3 (06:03→22:21)
[2022-03-29 06:32] LABS: Potassium 2.8 mmol/L (3.5-5.1)
[2022-03-29] MEDS ORDERED: POTASSIUM CHL 20 Meq TABLET PO ONE (07:30)
[2022-03-29] MEDS ORDERED: POTASSIUM CHLORIDE 40 MEQ, LIDOCAINE 1% (LOCAL ANESTH.) 4 ML in SODIUM CHL 0.9% 250 ML IV ONE (07:30)
[2022-03-29] MEDS: metOLazone 5 MG TAB PO SCH ×2 (09:36→22:22)
[2022-03-29] MEDS: POTASSIUM CHL 20 Meq TABLET PO SCH ×2 (09:36→22:23)
[2022-03-29] MEDS: DIGOXIN 0.125 MG TAB PO SCH (09:37)
[2022-03-29] MEDS: ENOXAPARIN SOD 150 MG/1 ML SYRINGE SC SCH ×2 (09:37→22:24)
[2022-03-29] MEDS: CARVEDILOL 3.125 MG TAB PO SCH ×3 (09:37→22:23)
[2022-03-29] MEDS ORDERED: FUROSEMIDE 20 MG/2 ML VIAL IV SCH (10:00)
[2022-03-29] MEDS: ALBUTEROL SULF 2.5 MG/0.5ML(0.5%) NEB SOLN NEB SCH ×3 (14:18→22:48)
[2022-03-29] MEDS: IPRATROPIUM BROM 0.5 MG/2.5ML INH SOL NEB SCH ×3 (14:18→22:48)
[2022-03-29 15:36] LABS: Calcium 9.3 mg/dL (8.5-10.1)
[2022-03-29 15:42] LABS: BUN/Creatinine Ratio 18.4
[2022-03-29] MEDS ORDERED: POTASSIUM EFFERVESENT TAB 25 MEQ PO ONE ×3 (16:00→17:15)
[2022-03-29 16:11] LABS: Potassium 2.9 mmol/L (3.5-5.1)
[2022-03-29] MEDS ORDERED: POTASSIUM EFFERVESENT TAB 25 MEQ ONE (18:24)
[2022-03-29] MEDS: FUROSEMIDE INJECTION 100 MG in SODIUM CHL 0.9% 100 ML IV SCH (18:38)
[2022-03-29] MEDS ORDERED: GABA100C9 PO (18:52)
[2022-03-29] MEDS ORDERED: POTA1TAB64 PO (18:52)
[2022-03-29] MEDS ORDERED: LACT10CA PO (18:52)
[2022-03-29] MEDS ORDERED: TORS20TA20 PO (18:52)
[2022-03-29] MEDS ORDERED: MAGN1CAP2 PO (18:52)
[2022-03-29] MEDS ORDERED: CHOL100047 PO (18:52)
[2022-03-29] MEDS: TEMAZEPAM 15 MG CAP PO PRN (22:22)
[2022-03-30] VITALS (19 sets, daily range): BP systolic 90–103; BP diastolic 49–71
[2022-03-30] MEDS: ALBUTEROL SULF 2.5 MG/0.5ML(0.5%) NEB SOLN NEB SCH ×6 (02:22→21:46)
[2022-03-30] MEDS: IPRATROPIUM BROM 0.5 MG/2.5ML INH SOL NEB SCH ×6 (02:22→21:46)
[2022-03-30] MEDS: FUROSEMIDE INJECTION 100 MG in SODIUM CHL 0.9% 100 ML IV SCH ×2 (04:31→18:14)
[2022-03-30] MEDS ORDERED: POTASSIUM CHL 20 Meq TABLET PO ONE (05:30)
[2022-03-30] MEDS ORDERED: POTASSIUM CHLORIDE 20 MEQ, LIDOCAINE 1% (LOCAL ANESTH.) 2 ML in SODIUM CHL 0.9% 100 ML IV ONE (05:30)
[2022-03-30] MEDS: SODIUM CHLOR 0.9% PF (SALINE LOCK) 10ML VIAL/SYR IV SCH ×3 (06:00→22:15)
[2022-03-30] MEDS: MORPHINE SULFATE INJ 2 MG/ml SYRG IV PRN ×2 (06:34→19:22)
[2022-03-30] MEDS: GABAPENTIN 100 MG CAP PO SCH ×2 (06:34→22:05)
[2022-03-30] MEDS: METOCLOPRAMIDE HCL 5MG/ml INJ 2ml VIAL IV SCH ×3 (06:34→22:17)
[2022-03-30 06:45] LABS: Albumin 2.8 g/dL (3.4-5.0); Bilirubin, Direct 0.8 mg/dL (0-0.2); Bilirubin, Total 1.5 mg/dL (0.2-1.0); Total Protein 6.2 g/dL (6.4-8.2)
[2022-03-30] MEDS: ENOXAPARIN SOD 150 MG/1 ML SYRINGE SC SCH ×2 (09:39→22:04)
[2022-03-30] MEDS: POTASSIUM CHL 20 Meq TABLET PO SCH (09:39)
[2022-03-30] MEDS: CARVEDILOL 3.125 MG TAB PO SCH ×2 (09:39→22:15)
[2022-03-30] MEDS: DIGOXIN 0.125 MG TAB PO SCH (09:40)
[2022-03-30] MEDS: metOLazone 5 MG TAB PO SCH ×3 (09:40→22:15)
[2022-03-30] MEDS ORDERED: AMIODARONE HCL 150 MG in D5W 5% 100 ML IV ONE (17:30)
[2022-03-30] MEDS ORDERED: AMIODARONE 450mg/250ml AE 250 ML IV ONE (17:36)
[2022-03-30] MEDS ORDERED: AMIODARONE 450mg/250ml AE 250 ML IV SCH (17:45)
[2022-03-30] MEDS: POTASSIUM EFFERVESENT TAB 25 MEQ PO SCH ×2 (18:33→22:16)
[2022-03-30] MEDS: TEMAZEPAM 15 MG CAP PO PRN (22:05)
[2022-03-30] MEDS: SENNA 8.6 MG TAB PO SCH (22:05)
[2022-03-30] MEDS: HYDROcodone-ACET 5/325MG TAB PO PRN (22:05)
[2022-03-31] VITALS (25 sets, daily range): BP systolic 77–106; BP diastolic 31–71
[2022-03-31] MEDS: IPRATROPIUM BROM 0.5 MG/2.5ML INH SOL NEB SCH ×6 (02:15→21:34)
[2022-03-31] MEDS: ALBUTEROL SULF 2.5 MG/0.5ML(0.5%) NEB SOLN NEB SCH ×6 (02:15→21:33)
[2022-03-31] MEDS: dilTIAZem 125mg/125ml BAG KIT 125 ML IV SCH (03:15)
[2022-03-31] MEDS: AMIODARONE 450mg/250ml AE 250 ML IV SCH ×2 (04:22→17:19)
[2022-03-31] MEDS: HYDROcodone-ACET 5/325MG TAB PO PRN ×2 (04:37→21:57)
[2022-03-31] MEDS: SODIUM CHLOR 0.9% PF (SALINE LOCK) 10ML VIAL/SYR IV SCH ×3 (06:00→21:58)
[2022-03-31 06:03] LABS: Basophils # (auto) 0.1 10 ^3/uL (0-0.2); Basophils % (auto) 0.9 % (0.0-2.0); Eosinophils # (auto) 0.1 10 ^3/uL (0-0.8); Eosinophils % (auto) 1.7 % (0.0-7.0); Hematocrit 37.7 % (36.0-46.0); Hemoglobin 12.6 g/dL (12.2-16.2); Lymphocytes # (auto) 1.6 10 ^3/uL (0.4-5.4); Lymphocytes % (auto) 22.9 % (10.0-50.0); Mean Corpuscular Hemoglobin 32.1 pg (28.0-32.0); Mean Corpuscular Hgb Conc. 33.4 g/dL (32.0-36.0); Mean Corpuscular Volume 96.1 fL (80.0-100.0); Monocytes # (auto) 0.6 10 ^3/uL (0-1.3); Monocytes % (auto) 8.5 % (0.0-12.0); Neutrophils # (auto) 4.8 10 ^3/uL (1.6-8.6); Red Blood Cells 3.93 10^6/uL (4.0-5.20); Red Cell Distribution Width 17.7 % (11.8-14.3); White Blood Cell 7.2 10^3/uL (4.4-10.8)
[2022-03-31 06:25] LABS: Potassium 3.9 mmol/L (3.5-5.1)
[2022-03-31 06:30] LABS: Calcium 9.2 mg/dL (8.5-10.1); Magnesium 2.3 mg/dL (1.6-2.6)
[2022-03-31] MEDS: POTASSIUM EFFERVESENT TAB 25 MEQ PO SCH ×3 (07:59→21:58)
[2022-03-31] MEDS: METOCLOPRAMIDE HCL 5MG/ml INJ 2ml VIAL IV SCH ×3 (08:00→21:57)
[2022-03-31] MEDS: GABAPENTIN 100 MG CAP PO SCH ×3 (08:01→21:56)
[2022-03-31] MEDS: DIGOXIN 0.125 MG TAB PO SCH (08:25)
[2022-03-31] MEDS: CARVEDILOL 3.125 MG TAB PO SCH ×2 (08:25→21:58)
[2022-03-31] MEDS: FUROSEMIDE INJECTION 100 MG in SODIUM CHL 0.9% 100 ML IV SCH (08:26)
[2022-03-31] MEDS: ENOXAPARIN SOD 150 MG/1 ML SYRINGE SC SCH ×2 (10:00→21:57)
[2022-03-31] MEDS: metOLazone 5 MG TAB PO SCH ×2 (10:38→21:56)
[2022-03-31] MEDS: MORPHINE SULFATE INJ 2 MG/ml SYRG IV PRN (16:45)
[2022-03-31] MEDS: TEMAZEPAM 15 MG CAP PO PRN (21:56)
[2022-03-31] MEDS: SENNA 8.6 MG TAB PO SCH (21:57)
[2022-04-01] VITALS (22 sets, daily range): BP systolic 85–108; BP diastolic 51–69
[2022-04-01] MEDS: ALBUTEROL SULF 2.5 MG/0.5ML(0.5%) NEB SOLN NEB SCH ×6 (01:59→22:43)
[2022-04-01] MEDS: IPRATROPIUM BROM 0.5 MG/2.5ML INH SOL NEB SCH ×6 (01:59→22:43)
[2022-04-01] MEDS: FUROSEMIDE INJECTION 100 MG in SODIUM CHL 0.9% 100 ML IV SCH (02:03)
[2022-04-01] MEDS: dilTIAZem 125mg/125ml BAG KIT 125 ML IV SCH (03:15)
[2022-04-01] MEDS: AMIODARONE 450mg/250ml AE 250 ML IV SCH (05:45)
[2022-04-01] MEDS: GABAPENTIN 100 MG CAP PO SCH ×3 (06:16→22:19)
[2022-04-01] MEDS: METOCLOPRAMIDE HCL 5MG/ml INJ 2ml VIAL IV SCH ×3 (06:16→22:19)
[2022-04-01] MEDS: SODIUM CHLOR 0.9% PF (SALINE LOCK) 10ML VIAL/SYR IV SCH ×3 (06:18→22:20)
[2022-04-01] MEDS: MORPHINE SULFATE INJ 2 MG/ml SYRG IV PRN ×2 (06:18→19:52)
[2022-04-01] MEDS: POTASSIUM EFFERVESENT TAB 25 MEQ PO SCH (06:18)
[2022-04-01 08:15] LABS: Hemoglobin 13.7 g/dL (12.2-16.2); Mean Corpuscular Hemoglobin 31.8 pg (28.0-32.0); Mean Corpuscular Hgb Conc. 32.6 g/dL (32.0-36.0); Mean Corpuscular Volume 97.6 fL (80.0-100.0); Red Blood Cells 4.31 10^6/uL (4.0-5.20); White Blood Cell 13.1 10^3/uL (4.4-10.8)
[2022-04-01 08:18] LABS: Basophils % (manual) 0 (0.0-2.0); Blast Cells 0; Eosinophils % (manual) 0 (0-7); Metamyelocytes % 0; Promyelocytes % 0; Reactive Lymphocytes 0
[2022-04-01 08:34] LABS: BUN/Creatinine Ratio 18.3; Calcium 9.4 mg/dL (8.5-10.1)
[2022-04-01 08:37] LABS: Potassium 6.6 mmol/L (3.5-5.1)
[2022-04-01] MEDS ORDERED: metOLazone 5 MG TAB PO SCH (09:30)
[2022-04-01] MEDS: CARVEDILOL 3.125 MG TAB PO SCH ×2 (09:45→22:20)
[2022-04-01] MEDS ORDERED: SODIUM ZIRCONIUM CYCL 10 GM PAK PO ONE (09:45)
[2022-04-01] MEDS: DIGOXIN 0.125 MG TAB PO SCH (09:46)
[2022-04-01] MEDS: ENOXAPARIN SOD 150 MG/1 ML SYRINGE SC SCH ×2 (10:00→22:20)
[2022-04-01 10:05] LABS: Magnesium 2.4 mg/dL (1.6-2.6); Phosphorus 4.9 mg/dL (2.5-4.90)
[2022-04-01] MEDS ORDERED: PHENYLEPHRINE IV 250 ML IV PRN (11:15)
[2022-04-01] MEDS ORDERED: NOREPINEPHRINE 8 MG/250ML KIT 250 ML IV PRN (11:15)
[2022-04-01 11:16] LABS: Band Neutrophils % (manual) 1; Lymphocytes % (manual) 20 (10.0-50.0); Monocytes % (manual) 5 (0-12); Myelocytes % 1
[2022-04-01 18:14] LABS: Creatinine, Urine 97 mg/dL (30.0-125.0); Protein, Urine 77.9 mg/dL (0.0-11.9); Sodium Urine < 5 mmol/L (40-220)
[2022-04-01 18:35] LABS: Urine Bacteria NONE SEEN /hpf (None Seen); Urine Blood 3+ /uL (Negative); Urine Specific Gravity 1.016 (1.001-1.035); Urine WBC 13 /hpf (0 - 5)
[2022-04-01 19:18] LABS: Hepatitis C Antibody Negative (Negative)
[2022-04-01 20:39] LABS: Calcium 9.3 mg/dL (8.5-10.1); Potassium 4.9 mmol/L (3.5-5.1)
[2022-04-01 20:50] LABS: BUN/Creatinine Ratio 20.3
[2022-04-01] MEDS: SENNA 8.6 MG TAB PO SCH (22:19)
[2022-04-02] VITALS (30 sets, daily range): BP systolic 82–105; BP diastolic 42–65
[2022-04-02] MEDS: IPRATROPIUM BROM 0.5 MG/2.5ML INH SOL NEB SCH ×6 (01:57→22:13)
[2022-04-02] MEDS: ALBUTEROL SULF 2.5 MG/0.5ML(0.5%) NEB SOLN NEB SCH ×6 (01:57→22:13)
[2022-04-02] MEDS: GABAPENTIN 100 MG CAP PO SCH ×3 (05:51→22:08)
[2022-04-02] MEDS: METOCLOPRAMIDE HCL 5MG/ml INJ 2ml VIAL IV SCH ×3 (05:51→22:25)
[2022-04-02] MEDS: SODIUM CHLOR 0.9% PF (SALINE LOCK) 10ML VIAL/SYR IV SCH ×3 (05:51→22:25)
[2022-04-02] MEDS ORDERED: AMIODARONE HCL 200 MG TAB PO ONE (12:15)
[2022-04-02 12:19] LABS: Hematocrit 38.3 % (36.0-46.0); Hemoglobin 12.5 g/dL (12.2-16.2); Mean Corpuscular Hemoglobin 31.5 pg (28.0-32.0); Mean Corpuscular Hgb Conc. 32.6 g/dL (32.0-36.0); Mean Corpuscular Volume 96.7 fL (80.0-100.0); Red Blood Cells 3.97 10^6/uL (4.0-5.20); Red Cell Distribution Width 17.6 % (11.8-14.3)
[2022-04-02 12:21] LABS: Basophils % (manual) 0 (0.0-2.0); Blast Cells 0; Eosinophils % (manual) 0 (0-7); Myelocytes % 0; Promyelocytes % 0
[2022-04-02 12:35] LABS: Band Neutrophils % (manual) 2; Lymphocytes % (manual) 16 (10.0-50.0); Metamyelocytes % 2; Monocytes % (manual) 3 (0-12); Reactive Lymphocytes 3
[2022-04-02] MEDS: CARVEDILOL 3.125 MG TAB PO SCH ×2 (12:55→22:00)
[2022-04-02 14:16] LABS: Albumin 2.4 g/dL (3.4-5.0); BUN/Creatinine Ratio 23.4; Bilirubin, Total 2.5 mg/dL (0.2-1.0); Calcium 8.9 mg/dL (8.5-10.1); Potassium 4.6 mmol/L (3.5-5.1); Total Protein 6.2 g/dL (6.4-8.2)
[2022-04-02] MEDS: SENNA 8.6 MG TAB PO SCH (22:08)
[2022-04-02] MEDS: AMIODARONE HCL 200 MG TAB PO SCH (22:09)
[2022-04-02] MEDS: TEMAZEPAM 15 MG CAP PO PRN (22:25)
[2022-04-03] VITALS (46 sets, daily range): BP systolic 83–146; BP diastolic 26–113
[2022-04-03] MEDS: IPRATROPIUM BROM 0.5 MG/2.5ML INH SOL NEB SCH ×6 (02:22→22:10)
[2022-04-03] MEDS: ALBUTEROL SULF 2.5 MG/0.5ML(0.5%) NEB SOLN NEB SCH ×6 (02:22→22:10)
[2022-04-03] MEDS: dilTIAZem 125mg/125ml BAG KIT 125 ML IV SCH (03:15)
[2022-04-03 04:06] LABS: Basophils # (auto) 0.1 10 ^3/uL (0-0.2); Eosinophils # (auto) 0.3 10 ^3/uL (0-0.8); Eosinophils % (auto) 2.1 % (0.0-7.0); Hematocrit 37.3 % (36.0-46.0); Hemoglobin 12.4 g/dL (12.2-16.2); Lymphocytes # (auto) 1.9 10 ^3/uL (0.4-5.4); Mean Corpuscular Hemoglobin 32.1 pg (28.0-32.0); Mean Corpuscular Hgb Conc. 33.3 g/dL (32.0-36.0); Mean Corpuscular Volume 96.4 fL (80.0-100.0); Monocytes # (auto) 0.9 10 ^3/uL (0-1.3); Monocytes % (auto) 6.3 % (0.0-12.0); Neutrophils # (auto) 10.4 10 ^3/uL (1.6-8.6); Neutrophils % (auto) 76.6 % (37.0-80.0); Nucleated Red Blood Cells % 0.8 %; Red Blood Cells 3.87 10^6/uL (4.0-5.20); Red Cell Distribution Width 17.2 % (11.8-14.3); White Blood Cell 13.6 10^3/uL (4.4-10.8)
[2022-04-03] MEDS: MORPHINE SULFATE INJ 2 MG/ml SYRG IV PRN ×3 (04:24→20:25)
[2022-04-03 04:36] LABS: Albumin 2.7 g/dL (3.4-5.0); BUN/Creatinine Ratio 25.9; Bilirubin, Total 2.3 mg/dL (0.2-1.0); Calcium 9.1 mg/dL (8.5-10.1); Potassium 5.2 mmol/L (3.5-5.1); Total Protein 6.2 g/dL (6.4-8.2)
[2022-04-03] MEDS: METOCLOPRAMIDE HCL 5MG/ml INJ 2ml VIAL IV SCH ×3 (06:25→21:51)
[2022-04-03] MEDS: GABAPENTIN 100 MG CAP PO SCH (06:25)
[2022-04-03] MEDS: SODIUM CHLOR 0.9% PF (SALINE LOCK) 10ML VIAL/SYR IV SCH ×3 (06:25→21:51)
[2022-04-03] MEDS: AMIODARONE HCL 200 MG TAB PO SCH ×2 (09:50→21:52)
[2022-04-03] MEDS: CARVEDILOL 3.125 MG TAB PO SCH ×2 (09:58→21:52)
[2022-04-03] MEDS ORDERED: ENOXAPARIN SOD 150 MG/1 ML SYRINGE SC SCH (10:00)
[2022-04-03] MEDS: TEMAZEPAM 15 MG CAP PO PRN (14:10)
[2022-04-03] MEDS: FUROSEMIDE 40 MG/4 ML VIAL IV SCH (17:35)
[2022-04-03] MEDS: SENNA 8.6 MG TAB PO SCH (21:51)
[2022-04-04] VITALS (38 sets, daily range): BP systolic 80–110; BP diastolic 46–69
[2022-04-04 02:46] LABS: Creatinine, Urine 90 mg/dL (30.0-125.0); Sodium Urine 6 mmol/L (40-220)
[2022-04-04] MEDS: ALBUTEROL SULF 2.5 MG/0.5ML(0.5%) NEB SOLN NEB SCH ×6 (02:46→22:28)
[2022-04-04] MEDS: IPRATROPIUM BROM 0.5 MG/2.5ML INH SOL NEB SCH ×6 (02:46→22:28)
[2022-04-04] MEDS: HYDROcodone-ACET 5/325MG TAB PO PRN (03:05)
[2022-04-04] MEDS: dilTIAZem 125mg/125ml BAG KIT 125 ML IV SCH (03:15)
[2022-04-04] MEDS: SODIUM CHLOR 0.9% PF (SALINE LOCK) 10ML VIAL/SYR IV SCH ×3 (05:59→21:43)
[2022-04-04] MEDS: FUROSEMIDE 40 MG/4 ML VIAL IV SCH ×2 (05:59→17:59)
[2022-04-04] MEDS: METOCLOPRAMIDE HCL 5MG/ml INJ 2ml VIAL IV SCH ×3 (05:59→21:39)
[2022-04-04 06:54] LABS: Albumin 2.6 g/dL (3.4-5.0); Calcium 9.5 mg/dL (8.5-10.1); Potassium 5.2 mmol/L (3.5-5.1)
[2022-04-04 06:56] LABS: BUN/Creatinine Ratio 30.6
[2022-04-04 06:58] LABS: Bilirubin, Total 2.4 mg/dL (0.2-1.0)
[2022-04-04] MEDS: AMIODARONE HCL 200 MG TAB PO SCH ×2 (10:36→21:41)
[2022-04-04] MEDS: CARVEDILOL 3.125 MG TAB PO SCH ×2 (10:37→21:42)
[2022-04-04] MEDS: MORPHINE SULFATE INJ 2 MG/ml SYRG IV PRN ×2 (11:14→20:17)
[2022-04-04] MEDS ORDERED: ALBUMIN 25% 100 ML IV ONE (13:30)
[2022-04-04] MEDS: TEMAZEPAM 15 MG CAP PO PRN (16:41)
[2022-04-04] MEDS ORDERED: ALPRAZolam 0.5 MG TAB PO ONE (17:00)
[2022-04-04] MEDS: NYSTATIN (MOUTH-THROAT) 500,000 UNITS/5 ML SUSP MT SCH ×2 (18:00→21:42)
[2022-04-04] MEDS: ALBUMIN 25% 100 ML IV SCH (21:39)
[2022-04-04] MEDS: ALPRAZolam 0.5 MG TAB PO SCH (21:40)
[2022-04-04] MEDS: SENNA 8.6 MG TAB PO SCH (21:41)
[2022-04-04] MEDS: ENOXAPARIN SOD 40 MG/0.4 ML SYRINGE SC SCH (21:42)
[2022-04-05] VITALS (68 sets, daily range): BP systolic 80–121; BP diastolic 31–84
[2022-04-05] MEDS: MORPHINE SULFATE INJ 2 MG/ml SYRG IV PRN (02:06)
[2022-04-05] MEDS: IPRATROPIUM BROM 0.5 MG/2.5ML INH SOL NEB SCH ×6 (02:37→22:13)
[2022-04-05] MEDS: ALBUTEROL SULF 2.5 MG/0.5ML(0.5%) NEB SOLN NEB SCH ×6 (02:37→22:13)
[2022-04-05] MEDS: FUROSEMIDE 40 MG/4 ML VIAL IV SCH (05:18)
[2022-04-05] MEDS: METOCLOPRAMIDE HCL 5MG/ml INJ 2ml VIAL IV SCH ×3 (05:19→22:00)
[2022-04-05] MEDS: NYSTATIN (MOUTH-THROAT) 500,000 UNITS/5 ML SUSP MT SCH ×4 (05:19→22:07)
[2022-04-05] MEDS: ALPRAZolam 0.5 MG TAB PO SCH ×3 (05:19→22:00)
[2022-04-05] MEDS: SODIUM CHLOR 0.9% PF (SALINE LOCK) 10ML VIAL/SYR IV SCH ×4 (05:19→22:09)
[2022-04-05 05:32] LABS: Calcium 9.5 mg/dL (8.5-10.1); Potassium 5.4 mmol/L (3.5-5.1)
[2022-04-05 05:38] LABS: BUN/Creatinine Ratio 32.7; Bilirubin, Total 4.1 mg/dL (0.2-1.0); Total Protein 6.2 g/dL (6.4-8.2)
[2022-04-05] MEDS: HYDROcodone-ACET 5/325MG TAB PO PRN (06:09)
[2022-04-05] MEDS ORDERED: ROCURONIUM 10MG/ML 10ML VIAL IV ONE ×2 (08:41→14:45)
[2022-04-05] MEDS ORDERED: fentaNYL Drip 2500mCg/250mlNS 250 ML IV ONE (08:49)
[2022-04-05] MEDS ORDERED: MIDAZOLAM DRIP 50 mg/50mL 50 ML IV ONE (08:51)
[2022-04-05] MEDS ORDERED: ALBUMIN 25% 100 ML IV ONE ×2 (09:07→09:15)
[2022-04-05] MEDS ORDERED: NOREPINEPHRINE 8 MG/250ML KIT 250 ML IV ONE (09:08)
[2022-04-05] MEDS ORDERED: ETOMIDATE (2MG/ML) 20ML VIAL IV ONE (09:15)
[2022-04-05] MEDS: NOREPINEPHRINE 8 MG/250ML KIT 250 ML IV SCH ×4 (09:30→21:54)
[2022-04-05] MEDS: fentaNYL Drip 2500mCg/250mlNS 250 ML IV SCH ×2 (10:34→23:45)
[2022-04-05] MEDS: MIDAZOLAM DRIP 50 mg/50mL 50 ML IV SCH ×4 (10:39→23:58)
[2022-04-05 11:08] LABS: INR 1.51 (0.9-1.15); Partial Thromboplastin Time 31.1 sec (24.6-33.4)
[2022-04-05] MEDS: AMIODARONE HCL 200 MG TAB PO SCH ×2 (11:10→22:08)
[2022-04-05] MEDS: ALBUMIN 25% 100 ML IV SCH ×2 (11:11→21:59)
[2022-04-05] MEDS: ENOXAPARIN SOD 40 MG/0.4 ML SYRINGE SC SCH ×2 (11:11→22:07)
[2022-04-05] MEDS ORDERED: VANCOMYCIN PER PHARMACY 0 MG IV SCH ×4 (12:00→22:45)
[2022-04-05] MEDS ORDERED: VANCOMYCIN 1GM/250ML 250 ML IV SCH (12:30)
[2022-04-05] MEDS: DOPamine 1600MCG/ML D5W 250 ML IV SCH (12:42)
[2022-04-05] MEDS: PIPERACILLIN-TAZOB 3.375GM 100 ML IV SCH ×2 (12:43→18:34)
[2022-04-05] MEDS ORDERED: LIDOCAINE 1% (LOCAL ANESTH.) PF 5ml SDV ID ONE (12:45)
[2022-04-05] MEDS: BUMETANIDE INJECTION 12.5 MG in GIVE UN-DILUTED 0 ML IV SCH ×2 (13:03→22:39)
[2022-04-05] MEDS ORDERED: CEFTAROLINE FOSAMIL IV SCH (13:15)
[2022-04-05] MEDS ORDERED: PROPOFOL 100 ML IV ONE (13:41)
[2022-04-05] MEDS: PROPOFOL 100 ML IV SCH ×6 (13:48→23:51)
[2022-04-05] MEDS: PHENYLEPHRINE INJ 80 MG in SODIUM CHL 0.9% 242 ML IV SCH ×2 (17:15→19:37)
[2022-04-05] MEDS ORDERED: CEFTAROLINE 600 MG in SODIUM CHL 0.9% 250 ML IV SCH (18:00)
[2022-04-05] MEDS: SENNA 8.6 MG TAB PO SCH (22:07)
[2022-04-05] MEDS ORDERED: VANCOMYCIN 1GM/250ML 250 ML IV ONE (22:45)
[2022-04-06] VITALS (100 sets, daily range): BP systolic 84–109; BP diastolic 27–60
[2022-04-06] MEDS: ALBUTEROL SULF 2.5 MG/0.5ML(0.5%) NEB SOLN NEB SCH ×6 (02:21→22:13)
[2022-04-06] MEDS: IPRATROPIUM BROM 0.5 MG/2.5ML INH SOL NEB SCH ×6 (02:21→22:13)
[2022-04-06] MEDS: NOREPINEPHRINE 8 MG/250ML KIT 250 ML IV SCH ×5 (02:56→18:45)
[2022-04-06] MEDS: PROPOFOL 100 ML IV SCH ×4 (02:56→13:15)
[2022-04-06] MEDS: MIDAZOLAM DRIP 50 mg/50mL 50 ML IV SCH ×5 (02:57→21:57)
[2022-04-06] MEDS: DOPamine 1600MCG/ML D5W 250 ML IV SCH ×2 (03:00→20:35)
[2022-04-06 04:16] LABS: Potassium 5.5 mmol/L (3.5-5.1)
[2022-04-06 04:23] LABS: Albumin 3.2 g/dL (3.4-5.0); BUN/Creatinine Ratio 26.8; Bilirubin, Total 5.8 mg/dL (0.2-1.0); Magnesium 3.1 mg/dL (1.6-2.6); Total Protein 6.1 g/dL (6.4-8.2)
[2022-04-06 04:24] LABS: Basophils # (auto) 0.2 10 ^3/uL (0-0.2); Basophils % (auto) 1.1 % (0.0-2.0); Eosinophils # (auto) 0.4 10 ^3/uL (0-0.8); Eosinophils % (auto) 2.6 % (0.0-7.0); Hematocrit 38.2 % (36.0-46.0); Hemoglobin 12.7 g/dL (12.2-16.2); Lymphocytes # (auto) 1.7 10 ^3/uL (0.4-5.4); Lymphocytes % (auto) 12.1 % (10.0-50.0); Mean Corpuscular Hgb Conc. 33.2 g/dL (32.0-36.0); Mean Corpuscular Volume 96.3 fL (80.0-100.0); Monocytes # (auto) 1.1 10 ^3/uL (0-1.3); Monocytes % (auto) 7.6 % (0.0-12.0); Neutrophils # (auto) 11.1 10 ^3/uL (1.6-8.6); Neutrophils % (auto) 76.6 % (37.0-80.0); Nucleated Red Blood Cells % 1.4 %; Red Blood Cells 3.96 10^6/uL (4.0-5.20); Red Cell Distribution Width 17.6 % (11.8-14.3); White Blood Cell 14.5 10^3/uL (4.4-10.8)
[2022-04-06] MEDS: NYSTATIN (MOUTH-THROAT) 500,000 UNITS/5 ML SUSP MT SCH ×4 (05:35→21:55)
[2022-04-06] MEDS: METOCLOPRAMIDE HCL 5MG/ml INJ 2ml VIAL IV SCH ×3 (05:35→21:55)
[2022-04-06] MEDS: SODIUM CHLOR 0.9% PF (SALINE LOCK) 10ML VIAL/SYR IV SCH ×5 (05:35→21:55)
[2022-04-06] MEDS: ALPRAZolam 0.5 MG TAB PO SCH ×3 (05:36→21:56)
[2022-04-06] MEDS ORDERED: CEFEPIME 2 GM in SODIUM CHL 0.9% 50 ML IV SCH (06:00)
[2022-04-06] MEDS: PHENYLEPHRINE INJ 80 MG in SODIUM CHL 0.9% 242 ML IV SCH ×3 (07:06→22:07)
[2022-04-06] MEDS: ENOXAPARIN SOD 40 MG/0.4 ML SYRINGE SC SCH ×2 (09:21→21:56)
[2022-04-06] MEDS: AMIODARONE HCL 200 MG TAB PO SCH ×2 (09:21→21:55)
[2022-04-06] MEDS: ALBUMIN 25% 100 ML IV SCH ×2 (09:22→21:54)
[2022-04-06] MEDS: fentaNYL Drip 2500mCg/250mlNS 250 ML IV SCH ×2 (11:22→23:12)
[2022-04-06] MEDS: SODIUM ZIRCONIUM CYCL 10 GM PAK PO SCH ×3 (11:41→21:55)
[2022-04-06] MEDS ORDERED: VANCOMYCIN 1GM/250ML 250 ML IV ONE (12:00)
[2022-04-06] MEDS: ACETAMINOPHEN 325 MG TAB PO PRN ×2 (13:54→21:59)
[2022-04-06] MEDS ORDERED: DAPTOmycin 750 MG in SODIUM CHL 0.9% 50 ML IV SCH (14:00)
[2022-04-06] MEDS: VASOPRESSIN 50 UNITS in D5W 5% 247.5 ML IV SCH ×2 (14:30→15:45)
[2022-04-06] MEDS: CEFEPIME 1GM/ 50ML 50 ML IV SCH (17:46)
[2022-04-06] MEDS: SENNA 8.6 MG TAB PO SCH (21:56)
[2022-04-06] MEDS: BUMETANIDE INJECTION 12.5 MG in GIVE UN-DILUTED 0 ML IV SCH (21:56)
[2022-04-07] VITALS (57 sets, daily range): BP systolic 81–120; BP diastolic 38–59
[2022-04-07] MEDS: NOREPINEPHRINE 8 MG/250ML KIT 250 ML IV SCH ×3 (00:08→07:47)
[2022-04-07] MEDS: MIDAZOLAM DRIP 50 mg/50mL 50 ML IV SCH ×3 (02:05→12:49)
[2022-04-07] MEDS: ALBUTEROL SULF 2.5 MG/0.5ML(0.5%) NEB SOLN NEB SCH ×4 (02:15→14:27)
[2022-04-07] MEDS: IPRATROPIUM BROM 0.5 MG/2.5ML INH SOL NEB SCH ×4 (02:15→14:27)
[2022-04-07] MEDS: PHENYLEPHRINE INJ 80 MG in SODIUM CHL 0.9% 242 ML IV SCH ×2 (03:55→10:22)
[2022-04-07] MEDS: ACETAMINOPHEN 325 MG TAB PO PRN ×2 (03:58→11:23)
[2022-04-07 04:09] LABS: Hemoglobin 12.1 g/dL (12.2-16.2); Mean Corpuscular Hemoglobin 31.4 pg (28.0-32.0); Mean Corpuscular Hgb Conc. 32.7 g/dL (32.0-36.0); Mean Corpuscular Volume 96.3 fL (80.0-100.0); Red Blood Cells 3.84 10^6/uL (4.0-5.20); Red Cell Distribution Width 17.6 % (11.8-14.3); White Blood Cell 15.7 10^3/uL (4.4-10.8)
[2022-04-07 04:13] LABS: Basophils % (manual) 0 (0.0-2.0); Blast Cells 0; Eosinophils % (manual) 0 (0-7); Promyelocytes % 0; Reactive Lymphocytes 0
[2022-04-07 04:49] LABS: BUN/Creatinine Ratio 23.8; Calcium 8.9 mg/dL (8.5-10.1); Phosphorus 7.1 mg/dL (2.5-4.90); Potassium 5.1 mmol/L (3.5-5.1)
[2022-04-07 04:54] LABS: BUN/Creatinine Ratio 23.2
[2022-04-07 04:57] LABS: Bilirubin, Total 10.1 mg/dL (0.2-1.0)
[2022-04-07 04:59] LABS: Band Neutrophils % (manual) 5; Lymphocytes % (manual) 7 (10.0-50.0); Metamyelocytes % 2; Monocytes % (manual) 6 (0-12); Myelocytes % 1
[2022-04-07] MEDS: ALPRAZolam 0.5 MG TAB PO SCH ×2 (06:00→14:00)
[2022-04-07] MEDS: CEFEPIME 1GM/ 50ML 50 ML IV SCH (06:10)
[2022-04-07] MEDS: SODIUM CHLOR 0.9% PF (SALINE LOCK) 10ML VIAL/SYR IV SCH ×3 (06:11→13:51)
[2022-04-07] MEDS: NYSTATIN (MOUTH-THROAT) 500,000 UNITS/5 ML SUSP MT SCH ×2 (06:11→11:23)
[2022-04-07] MEDS: METOCLOPRAMIDE HCL 5MG/ml INJ 2ml VIAL IV SCH ×2 (06:11→13:51)
[2022-04-07] MEDS: SODIUM ZIRCONIUM CYCL 10 GM PAK PO SCH ×2 (06:11→14:00)
[2022-04-07] MEDS: ENOXAPARIN SOD 40 MG/0.4 ML SYRINGE SC SCH (08:59)
[2022-04-07] MEDS: AMIODARONE HCL 200 MG TAB PO SCH (08:59)
[2022-04-07] MEDS: ALBUMIN 25% 100 ML IV SCH (09:00)
[2022-04-07] MEDS: fentaNYL Drip 2500mCg/250mlNS 250 ML IV SCH (10:07)
[2022-04-07] MEDS: DOPamine 1600MCG/ML D5W 250 ML IV SCH (12:49)
[2022-04-07] MEDS ORDERED: LORazepam 2MG/ML-1ML VIAL IV PRN (14:00)
[2022-04-07] MEDS ORDERED: MORPHINE SULFATE INJ 2 MG/ml SYRG IV PRN (14:00)
== END 2022-04-08 00:03 | DRG 194 ==
LOC: ER 10:13 → EDBD 10:13 → OVERFLOW 22:26 → TELE 23:03 → DOU IN ICU 03-28 12:04 → ICU WEST 04-05 10:34
PROVIDERS: ADMIT Nurse Practitioner Family; ATTEND Internal Medicine
PROC: 5A0935A Assistance with Respiratory Ventilation, Less than 24 Consecutive Hours, High Flow/Velocity Cannula (ICD-10-PCS; 2022-03-28)
PROC: 0W993ZZ Drainage of Right Pleural Cavity, Percutaneous Approach (ICD-10-PCS; 2022-03-29)
PROC: 5A0935A Assistance with Respiratory Ventilation, Less than 24 Consecutive Hours, High Flow/Velocity Cannula (ICD-10-PCS; 2022-03-29)
PROC: 5A09357 Assistance with Respiratory Ventilation, Less than 24 Consecutive Hours, Continuous Positive Airway Pressure (ICD-10-PCS; 2022-03-29)
PROC: 5A0935A Assistance with Respiratory Ventilation, Less than 24 Consecutive Hours, High Flow/Velocity Cannula (ICD-10-PCS; 2022-03-30)
PROC: 5A09357 Assistance with Respiratory Ventilation, Less than 24 Consecutive Hours, Continuous Positive Airway Pressure (ICD-10-PCS; 2022-03-30)
PROC: 0W993ZZ Drainage of Right Pleural Cavity, Percutaneous Approach (ICD-10-PCS; 2022-03-31)
PROC: 0W9B3ZZ Drainage of Left Pleural Cavity, Percutaneous Approach (ICD-10-PCS; 2022-03-31)
PROC: 5A0935A Assistance with Respiratory Ventilation, Less than 24 Consecutive Hours, High Flow/Velocity Cannula (ICD-10-PCS; 2022-03-31)
PROC: 5A0935A Assistance with Respiratory Ventilation, Less than 24 Consecutive Hours, High Flow/Velocity Cannula (ICD-10-PCS; 2022-04-01)
PROC: 5A0935A Assistance with Respiratory Ventilation, Less than 24 Consecutive Hours, High Flow/Velocity Cannula (ICD-10-PCS; 2022-04-02)
PROC: 5A0935A Assistance with Respiratory Ventilation, Less than 24 Consecutive Hours, High Flow/Velocity Cannula (ICD-10-PCS; 2022-04-03)
PROC: 5A09357 Assistance with Respiratory Ventilation, Less than 24 Consecutive Hours, Continuous Positive Airway Pressure (ICD-10-PCS; 2022-04-03)
PROC: 5A0935A Assistance with Respiratory Ventilation, Less than 24 Consecutive Hours, High Flow/Velocity Cannula (ICD-10-PCS; 2022-04-04)
PROC: 5A09357 Assistance with Respiratory Ventilation, Less than 24 Consecutive Hours, Continuous Positive Airway Pressure (ICD-10-PCS; 2022-04-04)
PROC: 5A1935Z Respiratory Ventilation, Less than 24 Consecutive Hours (ICD-10-PCS; 2022-04-05)
PROC: 0W993ZX Drainage of Right Pleural Cavity, Percutaneous Approach, Diagnostic (ICD-10-PCS; 2022-04-05)
PROC: 02HV33Z Insertion of Infusion Device into Superior Vena Cava, Percutaneous Approach (ICD-10-PCS; 2022-04-05)
PROC: B548ZZA Ultrasonography of Superior Vena Cava, Guidance (ICD-10-PCS; 2022-04-05)
PROC: 5A0935A Assistance with Respiratory Ventilation, Less than 24 Consecutive Hours, High Flow/Velocity Cannula (ICD-10-PCS; 2022-04-05)
PROC: 0BH17EZ Insertion of Endotracheal Airway into Trachea, Via Natural or Artificial Opening (ICD-10-PCS; 2022-04-05)
PROC: 5A1945Z Respiratory Ventilation, 24-96 Consecutive Hours (ICD-10-PCS; principal; 2022-04-06)
DX: I13.0 Hypertensive heart and chronic kidney disease with heart failure and stage 1 through stage 4 chronic kidney disease, or unspecified chronic kidney disease (principal); J96.21 Acute and chronic respiratory failure with hypoxia; A41.9 Sepsis, unspecified organism; J18.9 Pneumonia, unspecified organism; I27.29 Other secondary pulmonary hypertension; E44.0 Moderate protein-calorie malnutrition; J44.0 Chronic obstructive pulmonary disease with (acute) lower respiratory infection; E86.1 Hypovolemia; E88.09 Other disorders of plasma-protein metabolism, not elsewhere classified; E87.1 Hypo-osmolality and hyponatremia; I42.7 Cardiomyopathy due to drug and external agent; J91.8 Pleural effusion in other conditions classified elsewhere; I50.43 Acute on chronic combined systolic (congestive) and diastolic (congestive) heart failure; I48.0 Paroxysmal atrial fibrillation; Z66 Do not resuscitate; E66.01 Morbid (severe) obesity due to excess calories; N18.31 Chronic kidney disease, stage 3a; J98.11 Atelectasis; Z68.42 Body mass index [BMI] 45.0-49.9, adult; E87.5 Hyperkalemia; E87.6 Hypokalemia; F15.90 Other stimulant use, unspecified, uncomplicated; R01.1 Cardiac murmur, unspecified; Z51.5 Encounter for palliative care; F32.9 Major depressive disorder, single episode, unspecified; Z20.822 Contact with and (suspected) exposure to COVID-19; I50.82 Biventricular heart failure; K21.9 Gastro-esophageal reflux disease without esophagitis; R74.01 Elevation of levels of liver transaminase levels; R79.89 Other specified abnormal findings of blood chemistry; R00.1 Bradycardia, unspecified; K44.9 Diaphragmatic hernia without obstruction or gangrene; R31.0 Gross hematuria; Z79.899 Other long term (current) drug therapy; Z80.0 Family history of malignant neoplasm of digestive organs; Z82.49 Family history of ischemic heart disease and other diseases of the circulatory system; Z83.3 Family history of diabetes mellitus; Z91.199 Patient's noncompliance with other medical treatment and regimen due to unspecified reason; Z99.11 Dependence on respirator [ventilator] status
CPT/HCPCS: 32555; 36415; 36569; 36600; 71045; 76775; 76942; 80048; 80053; 80061; 80069; 80074; 80076; 80162; 80202; 80307; 81001; 82306; 82570; 82805; 83690; 83735; 83880; 83935; 83970; 83986; 84100; 84132; 84156; 84300; 84702; 85007; 85025; 85027; 85610; 85730; 86803; 87040; 87070; 87077; 87081; 87086; 87088; 87186; 87205; 87278; 87340; 87426; 89051; 93005; 93306; 94002; 94003; 94640; 94660; 96365; 96372; 96375; 96376; 97110; 97163; G0378; J0712; J2001; J2250; J2405; J2543; J2704; J3480; J7060; P9047